=== PATIENT | female | born 1975 | race Caucasian/White ===

== ENCOUNTER 2017-02-25 15:22 | Emergency (ER) | payer OTHER ==
[~2017-02-25 15:22] MED LIST: BUMETANIDE1 M1 PO; BUMETANIDE2 M2 PO; CLEOCIN HCL300 M1 PO; CLINDAMYCIN HC300 M2 PO; DIPHENHIST25 M3 PO; EDECRIN25 M1 PO; EPLERENONE50 M1 PO; FAMOTIDINE20 M3 PO; FIORICET TABLET1 TAB; HEPARIN; HYDROCODON-ACE1 EA16 PO; K-DUR20 ME1 PO; LISINOPRIL10 M1 PO; LOSARTAN POTASS25 M1 PO; MOTRIN800 MG PO; OXYCODONE/APAP PO; PRENATAL1 TAB; PRISTIQ ER50 MG PO; SUDAFED; SUDAFED30 M1 PO; TOPROL XL50 M1 PO; VISTARIL50 MG; [UNRECOGNIZED DRUG - CODE]; [UNRECOGNIZED DRUG - OTHER]
[2017-02-25] MEDS ORDERED: EFFEXOR XR150 M1 PO (15:33)
[2017-02-25] MEDS ORDERED: NEURONTIN300 M1 PO (15:34)
[2017-02-25] MEDS ORDERED: DEMADEX20 M1 PO (15:34)
[2017-02-25] MEDS ORDERED: POTASSIUM CHLO20 ME3 PO (15:35)
[2017-02-25 16:47] LABS: URINE BILIRUBIN NEGATIVE (NEG); URINE BLOOD MODERATE (NEG); URINE GLUCOSE (UA) NEGATIVE (NEG); URINE KETONE SMALL (NEG); URINE LEUKOCYTE ESTERASE NEGATIVE (NEG); URINE NITRITE NEGATIVE (NEG); URINE PROTEIN MODERATE (NEG)
[2017-02-25 16:54] LABS: BASO % 0.3 % (0-2); EOS % 2.4 % (0-7); EOSINOPHIL ABSOLUTE COUNT 0.2 tho/cmm (0.0-0.7); HCT-HEMATOCRIT 37.8 % (34.0-49.0); HGB-HEMOGLOBIN 13.5 gm/dl (12.0-15.5); IMMATURE GRANULOCYTES ABSOLUTE 0.03 tho/cmm (0-0.03); IMMATURE GRANULOCYTES PERCENT 0.3 % (0-0.3); LYMPH % 24.8 % (20-45); LYMPH ABSOLUTE COUNT 2.5 tho/cmm (0.8-4.5); MCH (MEAN CORPUSCULAR HGB) 31.8 pg (28.0-32.0); MCHC MEAN CORPUSCULAR HGB CONC 35.7 % (32.0-36.0); MCV (MEAN CELL VOLUME) 88.9 fl (82.0-96.0); MEAN PLATELET VOLUME 9.8 cmc (9.4-12.4); MONO % 9.1 % (0-12); MONOCYTE ABSOLUTE COUNT 0.9 tho/cmm (0.0-1.2); NEUTROPHIL ABSOLUTE COUNT 6.5 tho/cmm (1.6-8.0); NEUTROPHIL-AUTOMATED 6.5 tho/cmm (1.6-8.0); NEUTROPHILS % 63.1 % (40-80); PLATELET COUNT 256 tho/cmm (150-450); RED BLOOD COUNT 4.25 mil/cmm (4.00-5.20); WHITE BLOOD COUNT 10.2 tho/cmm (4.0-10.0)
[2017-02-25 17:01] LABS: URINE APPEARANCE CLEAR; URINE COLOR YELLOW
[2017-02-25 17:06] LABS: URINE EPITHELIAL CELLS 0-5 /[HPF] (0-10); URINE WBC 0-4 /[HPF] (0-5)
[2017-02-25 17:13] LABS: ALB/GLOB RATIO 0.8 (0.8-2.0); ALBUMIN 3.3 g/dl (3.5-5.0); ALKALINE PHOSPHATASE 84 U/L (33-138); ALT/SGPT 28 U/L (12-78); AST/SGOT 21 U/L (10-40); BILIRUBIN,TOTAL 0.5 mg/dl (0-1.5); BLOOD UREA NITROGEN 15 mg/dl (6-24); CALCIUM 8.9 mg/dl (8.5-10.5); CARBON DIOXIDE-VENOUS 30 mmol/L (22-32); CHLORIDE 98 mmol/l (96-110); CREATININE 1.08 mg/dl (0.50-1.10); GLUCOSE 133 mg/dL (70-110); SODIUM 138 mmol/L (135-145); eGFR VALUE FOR BLACK 73 mL/Min
[2017-02-25 17:17] LABS: ANION GAP 13 mmol/L (0-20); POTASSIUM 2.9 mmol/L (3.7-5.1)
[2017-02-25 17:18] LABS: TSH-THYROID STIMULATING HORM. 1.75 uIU/ml (0.40-3.80)
== END 2017-02-25 19:36 ==
LOC: EDMED 15:22
PROVIDERS: Emergency Medicine
DX: E87.6 Hypokalemia (principal); R07.89 Other chest pain; R53.1 Weakness; Z86.711 Personal history of pulmonary embolism; Z79.899 Other long term (current) drug therapy
CPT/HCPCS: J7030; P9612; Q9967